=== PATIENT | female | born 1925 | race Caucasian/White ===

== ENCOUNTER 2016-09-25 19:51 | Inpatient (IN) | payer MEDICARE, BC ==
[~2016-09-25] VITALS: Ht 165.1 cm; Wt 50.3 kg
--- NOTE | ~2016-09-25 | CON ---
PATIENT'S NAME: ROCIO FORTUNE [facility] AGE: 89 Y [address] ROOM: [id number] [place] [address] LOCATION: [facility] ADMIT DATE: 09/25/2016 Consultation DISCHARGE DATE: FAMILY PHYSICIAN: PHYSICIAN, UNKNOWN ATTENDING PHYSICIAN: VANESSA VALENCIA REFERRING PHYSICIAN: Tien Brown MD Consult for Dr. Martinez. This 89-year-old lady is referred for evaluation. She was admitted on 09/25/2016 through ER with a reported syncopal episode. It is not clear how long she was unconscious and did not suffer any falls, did not hit her head. She asked for assistance soon after she was aware of her surroundings. She has no history that she can mention of TIA and/or stroke. She does have history of atrial fibrillation and hypertension and was not on long-term anticoagulant. No pain. No shortness of breath. No chest pain. No pains in any part of her body that she can report. She has not had neurological deficits. The only deficit she has is her hearing difficulty and memory a little bit. She has history of hypertension and atrial fibrillation. Left knee APA and history of right hip pinning surgery and arthritis. She had cataract surgery, neurologically intact, and degenerative arthritis. PHYSICAL EXAMINATION: GENERAL: At the present time alert, well oriented. VITAL SIGNS: Blood pressure 179/86, temperature 97.9, pulse 86 and regular, respirations 16. She is 5 feet 5 inches tall and weighs 40 kg. HEENT: Head normocephalic. Cranial nerves 2 through 12 are within normal limits. NECK: Supple. Trachea is central. CHEST: Moving equally and regular respiration. NEURO: She can comprehend, express without difficulty. Cranial nerves 2 through 12 are within normal limits. Speech is clear, not wet. Vocal cords and soft palate move symmetrical. She can move all four. Muscle strength is about 4-/5. She has marked kyphosis. Other than that, she is breathing well. She is saturating at room air. Can ambulate. Muscle strength about 4- as I said. Can ambulate up to 25 feet x1 with front-wheeled walker and cuing and minimum assistance. She is continent of her bowel and bladder, neurologically intact. PATIENT'S NAME: ROCIO FORTUNE [facility] AGE: 89 Y [address] ROOM: [id number] [place], [place] [address] LOCATION: [facility] ADMIT DATE: 09/25/2016 Consultation DISCHARGE DATE: FAMILY PHYSICIAN: PHYSICIAN, ZEV ATTENDING PHYSICIAN: VANESSA VALENCIA ASSESSMENT AND PLAN: We will continue her on PT/OT which has been already initiated and we will add speech therapy to her therapies at the present time. She is now doing well, and if she continues to do this well, I feel that she can go on outpatient basis and I can follow on her in 1 week after discharge. Please see the orders. Did discuss this with her son and herself, they verbalized understanding and agreement with plan of care. She is on the following medications: 1. Cozaar. 2. Nystatin. 3. Lipitor. 4. Toprol-XL. 5. Norvasc. 6. Tylenol. 7. Aspirin. 8. Protonix. At the present time, she is doing well, stable. I will follow on her while here and will like to follow on her on an outpatient basis in my office in about 1 week or so after discharge. Thank you for this referral. MD MARY YEE/henny /[id number] d: 09/26/16 1646 t: 09/27/16 0900, CONSULTATION REPORT
--- NOTE | ~2016-09-25 | CON ---
PATIENT'S NAME: ROCIO FORTUNE [facility] AGE: 89 Y [address] ROOM: [place] [address] LOCATION: [facility] ADMIT DATE: 09/25/2016 Consultation DISCHARGE DATE: FAMILY PHYSICIAN: PHYSICIAN, UNKNOWN ATTENDING PHYSICIAN: VANESSA VALENCIA DATE OF CONSULTATION: 09/26/2016 REFERRING PHYSICIAN: Tien Brown MD REASON FOR CARDIOLOGY CONSULT: Syncope and atrial fibrillation. HISTORY OF PRESENT ILLNESS: This is an 89-year-old female, admitted with a subacute stroke after a syncopal episode in her independent living facility. Consult is requested for atrial fibrillation and a rin-DJ-lfrqjfve myocardial infarction. The patient has no complaints of chest pain. She does have complaints of shortness of breath at times as well as some palpitations. When questioned of her events leading to admission, she has no recollection of her syncope or the events surrounding. She does remember eating lunch and then heading to her room, but then waking up in front of her sliding glass door on the floor. Her cardiac history includes hypertension as well as atrial fibrillation. No notation of her being seen by Cardiology, but she is followed by Dr. Buck. No notation of long-term anticoagulation with her AFib history. The patient does appear anxious and does tend to focus on telling me about her 's heart history even though he is . PAST MEDICAL HISTORY: 1. Hypertension. 2. Atrial fibrillation, not on long-term anticoagulation. 3. Impaired vision with cataracts and macular degeneration. 4. Arthritis. PAST SURGICAL HISTORY: 1. Past right hip surgery. 2. Cataract removal bilaterally. 3. Left knee surgery. FAMILY HISTORY: No noted family health history. SOCIAL HISTORY: The patient denies tobacco. She also denies alcohol or illicit drug use. CURRENT MEDICATIONS: 1. Aspirin 81 mg p.o. daily. 2. Lipitor 40 mg p.o. daily. PATIENT'S NAME: ROCIO FORTUNE [facility] AGE: 89 Y [address] ROOM: [place] [address] LOCATION: [facility] ADMIT DATE: 09/25/2016 Consultation DISCHARGE DATE: FAMILY PHYSICIAN: PHYSICIAN, UNKNOWN ATTENDING PHYSICIAN: VANESSA VALENCIA 3. Norvasc 5 mg p.o. daily. 4. Toprol-XL 200 mg p.o. daily. MEDICATION ALLERGIES: Penicillin causing confusion. REVIEW OF SYSTEMS: A 12-point review of systems evaluated and negative except for those listed in the HPI. Once again, she denies chest pain or shortness of breath. She also denies dizziness at rest or with activity. She also denies nausea, vomiting, diarrhea, or changes in stool color. DIAGNOSTICS: CMS evaluation shows a sodium of 144, potassium 3.6, BUN of 16, creatinine of 0.9, glucose of 101. Cardiac enzyme trend shows a CPK of 72 and then 95, a CK- MB of 2.4 and then 3.4, and a troponin I of 0.081 and then 0.078. Lipid evaluation shows a total cholesterol of 133, triglycerides 76, HDL of 63, and an LDL of 55. She has a free T4 of 1.3 and a TSH of 1.55. She currently has bilateral carotid Dopplers as well as echocardiogram currently pending. PHYSICAL EXAMINATION: VITAL SIGNS: Temperature 97.9, pulse 96, respirations 16, blood pressure 179/86, and O2 saturation 93% on room air. The patient weighs 40 kg. SKIN: [place], warm, and dry. EYES: Sclerae clear. No xanthelasmas. ENT: Oral mucosa is pink and moist. No jugular venous distention or carotid bruits. CHEST: Respirations are even and unlabored. Lungs are clear to auscultation. HEART: Irregular rate and rhythm. Normal S1 and S2. Continues in atrial fibrillation on her youth nutritional monitor. ABDOMEN: Soft and nontender. MUSCULOSKELETAL: Gait is normal. EXTREMITIES: Peripheral pulses palpable. No clubbing, cyanosis, or edema. PSYCH: Alert and oriented. Mood and affect are appropriate besides some mild anxiety and being disoriented to the overall healthcare admission situation. IMPRESSION AND PLAN: Per Dr. aMlik: 1. Syncope. 2. Accelerated hypertension. 3. Atrial fibrillation, unsure of chronicity. 4. Recent subacute cerebrovascular accident. 5. History of a right hip surgery. 6. Elevated cardiac enzymes and possible djd-GJ-wjmwdlnt myocardial infarction. PATIENT'S NAME: ROCIO FORTUNE [facility] AGE: 89 Y [address] ROOM: [place] [address] LOCATION: [facility] ADMIT DATE: 09/25/2016 Consultation DISCHARGE DATE: FAMILY PHYSICIAN: PHYSICIAN, UNKNOWN ATTENDING PHYSICIAN: VANESSA VALENCIA We will continue her cardiac medications including metoprolol and amlodipine and titrate as appropriate. We want to avoid hypotension in view of her recent CVA. We would also like to anticoagulate her as soon as possible if okay with Neurology. We will evaluate her echocardiogram to fully evaluate ejection fraction as well as look for wall motion and valvular abnormalities. Her elevated cardiac enzymes are possibly likely to a type 2 (demand-supply mismatch) event, but once again, we will evaluate her echocardiogram and continue monitoring her EKG and enzymes. We will continue to monitor, evaluate, and treat as appropriate. The patient will be started on losartan 25 mg p.o. daily. Thank you for this consult. Thank you for allowing [facility] to interact in the care of this patient. ANSHUL NELSON APRN FOR MD MARY MO/henny /[id number] d: 09/26/162033 t: 10/05/161918, CONSULTATION REPORT
--- NOTE | ~2016-09-25 | CON ---
PATIENT'S NAME: ROCIO FORTUNE [facility] AGE: 89 Y [address] ROOM: [id number] [place], [place] [address] LOCATION: [facility] ADMIT DATE: 09/25/2016 Consultation DISCHARGE DATE: 09/28/2016 FAMILY PHYSICIAN: Physician, Unknown ATTENDING PHYSICIAN: Jean Pierre Daniels DATE OF CONSULTATION: 09/26/2016 REFERRING PHYSICIAN: Tien Brown MD HISTORY OF PRESENT ILLNESS: The patient was seen in neurologic consultation on 09/26/2016 at 2:00 p.m. Ms. Fortune was admitted on the prior to my consultation, was living at an independent facility in [place] according to her son whom I discussed her history. She apparently was sitting up in a chair, leaning forward, and lost consciousness briefly. She had called for some assistance by the staff there, but it was thought that she had some alteration in her sensorium. She was taken to the emergency room where she was evaluated at [facility] An MRI was performed there and showed a small, very punctate area of perhaps an acute ischemic event in the right posterior parietal region. The area did not seem to correlate at all with the patient's symptoms and the patient alone was back to her baseline when I saw her on the floor after transfer to our hospital. Upon my examination, I learned a lot more about the patient in general. 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 She did have depressive features where she will be not speaking with the persons like she used to and he noted that from a standpoint of her memory, she certainly could not remember the television programs what she was watching nor can she remember anything that she reads, in fact some depressive features on top of some dementia was significantly ongoing for at least a year. The patient did have a history of atrial fibrillation that was considered to be stable due to the fact that she was potentially a fall risk and also the fact that she has dementia. There was a consideration that she should be placed on anticoagulation. Thus as far as my consultation goes, I was to consider the issue of whether the event of a, I believe, syncopal episode as well as her ongoing dementia deserves that the patient have anticoagulation. From the standpoint of my seeing the patient, she was simply confused as to day of the week, time, situation, again according to the son, this seems to be more or less her baseline for the past few months. There is no recent head trauma that would explain some confusion. A CAT scan of the brain done here did not reveal any evidence of an acute intracranial process such as a bleed and there certainly was no evidence of an evolving stroke. The patient was essentially fairly rambunctious and did not want to answer questions. She did not initiate any conversation with the staff, at times was simply very cantankerous. She did appear to have some mild delirium as to orientation and was a bit aggressive, thus some secondary mild delirium was considered on top of some dementia. PATIENT'S NAME: ROCIO FORTUNE [facility] AGE: 89 Y [address] ROOM: [place] [address] LOCATION: [facility] ADMIT DATE: 09/25/2016 Consultation DISCHARGE DATE: 09/28/2016 FAMILY PHYSICIAN: , Claudy ATTENDING PHYSICIAN: Jean Pierre Daniels SOCIAL HISTORY: The patient is for about a year. She denies any smoking. There is no smoking or alcohol history. She currently lives in an independent living facility. FAMILY HISTORY: Not consistent with coronary artery disease or stroke. PAST SURGICAL HISTORY: There is a prior surgical history of a right hip pinning and a left knee surgery. PRIOR MEDICAL HISTORY: Includes hypertension; bilateral osteoarthritis; she has decreased hearing; macular degeneration with decreased vision; and a history of atrial fibrillation, not on anticoagulation. REVIEW OF SYSTEMS: The patient clearly has progressive dementia over the course of the past year. At baseline, she has poor memory and essentially has poor ability for conversation. She has periods of unexplained delirium at times, especially with sundowning. There is no focal neurologic weakness or sensory loss on exam and her vision is intact. She responds to withdrawal to pain in all her limbs. PHYSICAL EXAMINATION: VITAL SIGNS: Revealed a pulse of 89, regular respiration rate 14, blood pressure 168/86, and temperature is 97. GENERAL: The patient is confused to time and date. She orients herself to persons in the room, but does not want to participate in conversation. She follows, however, all commands to test her limbs. NEUROLOGIC: I did not appreciate any pronator drift. She moves her limbs appropriately. There is normal bulk and tone of the muscles. There is decreased facial expression and some slowing of her general motor skills. Testing of guqfhc-gh-lnnc is intact without any evidence of dysmetria. Cranial nerves 2 through 12 were intact. As the patient did sit up upright at the bed and we walked her around the room briefly, she did not display any evidence for focal weakness of her limbs. DIAGNOSTICS: Again, review of her of the results of the MRI at [facility] which I reviewed on the PACS System revealed a very small punctate area suggestive of diffusion-weighted positive ischemic event; however, this is too small to suggest that it was related to a cardioembolic event and there did PATIENT'S NAME: ROCIO FORTUNE [facility] AGE: 89 Y [address] ROOM: [address] [address] LOCATION: T ADMIT DATE: 09/25/2016 Consultation DISCHARGE DATE: 09/28/2016 FAMILY PHYSICIAN: , Claudy ATTENDING PHYSICIAN: Jean Pierre Daniels not appear to be any other strokes within the region. A CT head done here does not reveal evidence of an evolving stroke. IMPRESSION: Based upon the patient's risk factors for stroke associated with atrial fibrillation, risk factors do include advanced age and female sex; however, based upon no significant coronary artery disease history, no history of diabetes, no history of stroke that can be determined to be associated with atrial fibrillation, I do believe that she has a very low likelihood of a stroke in the future, perhaps estimated to be 3% per year. Based upon her advanced age and clear dementia, which has been well documented by her family and in discussions with the family, the family would opt against anticoagulation. Certainly, this would be a risk factor for the patient who does have some unstable gait in general. I discussed that the risk for atrial fibrillation strokes is probably very low in this patient; and certainly knowing that she has advanced dementia and her advanced age, I would not recommend anticoagulation even though it was discussed with Cardiology and that seemed to be their recommendation. Family understands that there is probably an increased risk for atrial fibrillation-related strokes, but it does remain low. They understand that the dementia is likely moderate to severe at this point in time, they would rather the patient not be placed on anticoagulation as I described the risk for stroke being low based upon her concurrent medical history. From a standpoint of her neurologic status, I did not find any focal neurologic deficits on exam and I would have the patient return back to her assisted living facility. MD MART NGUYEN/henny /[id number] d: 09/29/162 t: 10/15/16 1030, CONSULTATION REPORT
--- NOTE | ~2016-09-25 | DS ---
PATIENT'S NAME: ROCIO FORTUNE [facility] AGE: 89 Y [address] ROOM: [place] [address] LOCATION: [facility] ADMIT DATE: 09/25/2016 Discharge Summary DISCHARGE DATE: 09/28/2016 FAMILY PHYSICIAN: Physician, Unknown ATTENDING PHYSICIAN: Jean Pierre Daniels DISCHARGE DIAGNOSES: 1. Syncope. 2. Dementia. PAST MEDICAL HISTORY: 1. Hypertension. 2. Chronic atrial fibrillation, not on long-term anticoagulation per the patient's choice. 3. Osteoarthritis. DISCHARGE MEDICATIONS: 1. Amlodipine 10 mg p.o. daily. 2. Toprol-XL 200 mg p.o. every evening. 3. Aspirin 81 mg p.o. daily. 4. Losartan 100 mg p.o. daily. 5. Pantoprazole 40 mg p.o. daily. 6. Tylenol 650 mg p.o. every 6 hours p.r.n. for pain or fever. FOLLOWUP PLAN: The patient is instructed to follow up with the primary care physician within 7 days. The patient is also instructed to follow up with rehab physician, Dr. Brown, in 1 week. INVESTIGATIONS DURING THE HOSPITALIZATION: 1. Chest x-ray on admission showed cardiac enlargement with vascular congestion. Diffuse reticular opacity, likely reflecting interstitial edema. Fibrotic changes and scarring also contribute to the interstitial prominence. 2. CT scan of the brain without contrast on September 25, 2016 performed at the [facility] showed extensive small vessel cerebrovascular disease. 3. MRI of the brain performed on September 25, 2016, at the [facility] showed extensive periventricular and subcortical white matter changes consistent with small vessel cerebrovascular disease, more prominent than normal for the patient's age. Tiny, 5 mm, subacute lacunar infarcts seen in the posterior medial aspect right parietal lobe on the diffusion-weighted sequence. 4. Transthoracic echo on September 26, 2016 showed normal left ventricular contractility. The estimated left ventricular ejection fraction is 60%. There is mild concentric left ventricular hypertrophy. Basal septal hypertrophy. Diastolic grade 3 diastolic dysfunction. There is no evidence for PFO or ASD. The right atrium is moderate to severely PATIENT'S NAME: ROCIO FORTUNE [facility] AGE: 89 Y [address] ROOM: [place] [address] LOCATION: [facility] ADMIT DATE: 09/25/2016 Discharge Summary DISCHARGE DATE: 09/28/2016 FAMILY PHYSICIAN: Physician, Unknown ATTENDING PHYSICIAN: Jean Pierre Daniels. Xbhbksws-[id number] mitral regurgitation. Moderate mitral annular calcification. The aortic valve is moderately sclerotic. Mild- to-moderate aortic regurgitation. Moderate tricuspid regurgitation. Ctbcgwxu-oa-qrnosu pulmonary hypertension. Pulmonary pressure is 56 mmHg. 5. EKG on admission show atrial fibrillation with heart rate 88 beats per minute with occasional PVC. No acute ischemic findings. 6. Troponin 0.081, followed by 0.078, followed by less than 0.04. Ammonia level 12. Fingerstick glucose ranged between 80 to 193. CPK 72, followed by 95, followed by 262. CK-MB 2.4, followed by 3.4, followed by 8.4. White blood cell on admission 7.3, hemoglobin 13.9, hematocrit 42.3, MCV 94.2, and platelet 126. Chemistry on admission glucose 101, BUN 16, creatinine 0.9, sodium 144, potassium 3.6, chloride 105, CO2 of 29, and calcium 8.4. On September 27, 2016 showed glucose 90, BUN 17, creatinine 0.9, sodium 143, potassium 3.8, chloride 108, CO2 of 24, and calcium 8.7. Albumin 2.9, phosphorus 2.8, GFR 59, anion gap 14.8 on September 27, 2016. Magnesium 1.9 on September 26, 2016. A1c 6.0. LDL 55, HDL 63, triglycerides 76, and total cholesterol 133. Urinalysis negative for UTI, leukocytes negative, nitrites negative, bacteria negative, white blood cells rare, red blood cells negative, and blood negative. TSH of 1.550 and free T4 of 1.3. CONSULTANTS INVOLVED IN CARE: 1. Neurologist, Dr. Arias. 2. Fundraiser, Dr. Malik. 3. Rehab physician, Dr. Brown. ADMISSION HISTORY AND HOSPITAL COURSE: For complete history and physical, refer to history and physical dictated on the day of admission. In summary, this is an 89-year-old female with past medical history as mentioned above, who was transferred from [facility] from the emergency room to here for higher level of care. The story was obtained from the patient and her family. The story is that the patient was sitting in a recliner, somehow she had a witnessed syncopal episode and was found leaning forward from the recliner. The patient had no recollection of how she suffered the syncope and could not really give much detail on the history. The patient got up from the chair and tried to reach the door and she called for assistance and was taken to the ER by her son for evaluation in the [facility] Emergency Room. CT scan of the brain and MRI were performed. MRI showed a subacute stroke, but it was subacute and not acute. The patient was transferred here for further evaluation in the hospital. Further workup and further evaluation by Neurology and Cardiology determined that the patient did not have any stroke given that the patient's MRI imaging was reviewed by the neurologist and based on the physical PATIENT'S NAME: ROCIO FORTUNE [facility] AGE: 89 Y [address] ROOM: [place] [address] LOCATION: [facility] ADMIT DATE: 09/25/2016 Discharge Summary DISCHARGE DATE: 09/28/2016 FAMILY PHYSICIAN: Physician, Claudy ATTENDING PHYSICIAN: Jean Pierre Daniels examination, the patient has absolutely no neurological deficit at all. It was believed that the patient did not have any acute stroke and stroke was not the main reason for this admission. The patient was admitted for the evaluation of the syncope and also questionable stroke. 1) Regarding her syncope: The patient was seen by linux consultant Dr. Malik. The patient had orthostatic vital signs checked, which were negative. Therefore, dehydration ruled out. The patient has a history of chronic atrial fibrillation. An echo was performed, which did not show any abnormality in the contractility. EF was normal at 60%; however, showed grade 3 diastolic dysfunction. The patient's troponin was also slightly elevated; however, it was not ACS given that the patient did not have any chest pain and the troponin already peaked. It is believed this is most likely from demand ischemia. Cardiology deferred care of anticoagulation for Neurology. The patient did not have any chest pain. Troponin already normalized and echo did not show any abnormal contractility, therefore, cardiac catheterization was not performed since the echo did not show any motion abnormality. Her syncope was not clear what was the cause, perhaps it is vasovagal. The patient has been stable throughout the hospitalization and did not have any more episodes of syncope. Neurology saw the patient, and given that the patient did not have any neurological deficit, anticoagulation for her chronic atrial fibrillation was discussed among the Neurologist Dr. Arias, patient, and her family members. The decision was not to proceed with anticoagulation due to high fall risks and given the patient does not have any history of heart failure or coronary artery disease, echo also showed normal contractility, therefore, the patient and the patient's family and neurologist all agreed not to proceed with the use of long- term anticoagulation. 2) Regarding her questionable stroke: The patient does not have any acute stroke. The patient has no neurological deficit at all on physical examination. The patient was seen by rehab physician, who also agreed that there is absolutely no neurological deficit. Therefore, the patient will have outpatient followup with Dr. Brown for rehab. The patient does not require inpatient rehab. MRI was reviewed by the neurologist and could not find any evidence of acute stroke or subacute stroke. The patient has no symptoms whatsoever of stroke. The patient will be discharged home with medications mentioned in the discharge medication section. 3) Regarding her dementia: The patient was evaluated by Neurology and she does have symptoms consistent with dementia. Family members also agreed that she is forgetful and has been experiencing short-term memory problem consistent with dementia. During this hospitalization, the patient had brief episodes of delirium that was controlled with a few doses of Seroquel as part of the PATIENT'S NAME: ROCIO FORTUNE [facility] AGE: 89 Y [address] ROOM: [place] [address] LOCATION: [facility] ADMIT DATE: 09/25/2016 Discharge Summary DISCHARGE DATE: 09/28/2016 FAMILY PHYSICIAN: Physician, Unknown ATTENDING PHYSICIAN: Jean Pierre Daniels delirium order set. Delirium workup was performed and could not find any reversible causes or possible explanation of the delirium. Her urine culture was negative. Her electrolytes were unremarkable. Chest x-ray did not show any pneumonia. There is no UTI. There is no stroke on MRI. CT scan did not show any stroke either. There is no bleeding in the brain. Simply the patient kept saying that the only thing she wanted was to go home. On the day of discharge, the patient's family members were at the bedside and the patient was back to her normal baseline. Delirium had resolved. I had a lengthy family meeting with patient's family members and also her other son (by phone), who lives in [place]. I spent a lengthy amount of time on the phone with the son in [place], who is the healthcare proxy to update him on the entire hospitalization course and the discharge planning. I answered all of the questions that the patient's son had in [place] and I also asked if the son agreed to let the patient go home with her other son, who will be taking care of the patient at home. The son in [place] agreed and gave me the permission to have her other son take her back home to take care of the patient. On the day of discharge, I answered all the questions that the family members had at the bedside and also from the son, who lives in [place], who is the healthcare proxy. On the day of discharge, the patient is in good spirits, vital signs within normal limits. Delirium already resolved. She is alert and oriented x3. The only thing she wants to do is to go home. On the day of discharge, 35 minutes was spent on counseling, going over the entire hospitalization course with the patient and her family members at the bedside. I also spoke over the phone with her son in [place]. I addressed all the questions and concerns that the patient and her family members had and also went over follow up plans with all of them. MD CARLOS DUNN/henny /[id number] d: 10/01/16 0309 t: 10/16/16 1021, DISCHARGE SUMMARY
--- NOTE | ~2016-09-25 | ECHO ---
Transthoracic Echocardiography Report (TTE) Demographics Patient Name ROCIO FORTUNE Date of Study 09/26/2016 Patient Number [id number] Visit Number [id number] Date of 1925 Room Number G6225 Accession Number [id number] Gender Female Age 89 year(s) Referring Frances Ulrich MD Secretary Specialist Jevon Schulte RVT Physician Balwinder Barragan Physician Interpreting Helena Hollis Piano Teacher Physician Supervising Ordering Physician Juan Mann MD, MD/MLP Nurse Stress Dock Coordinator Conclusions Contractility Score Summary Normal Left Ventricular contractility was noted. Summary The estimated left ventricular ejection fraction is 60%. The left ventricle is normal in size . Mild concentric left ventricular hypertrophy. Basal septal hypertrophy Diastolic assessment reveals Grade III restrictive diastolic dysfunction. Mildly dilated right ventricle. The left atrium is severely dilated by LA volume index measurement. Bubble study was done, there is no evidence for a PFO or ASD. The right atrium is moderate to severely dilated. Hepatic vein flow reversal noted. Moderate mitral annular calcification. Moderate-severe mitral regurgitation by color Doppler. The aortic valve is moderately sclerotic. There is mild to moderate aortic regurgitation by color Doppler. Moderate tricuspid regurgitation by color Doppler. There is moderate to severe pulmonary hypertension. The pulmonary pressure (RVSP) is 56 mmHg. Mild pulmonic valve regurgitation by color Doppler. Procedure Type of Study TTE procedure:2D Echocardiogram, M-Mode, Doppler , Color Doppler, Echo with Contrast. Procedure Date Date: 09/26/2016 Start: 08:09 AM Study Location: Inpatient Portable Technical Quality: Adequate visualization Indications:CVA and Syncope. Appropriate Use Criteria: 9 Patient Status: Routine HR: 89 bpm BP: 179/86 mmHg M-Mode/2D Measurements LV Diastolic Dimension: 3.71 cm LV Systolic Dimension: 2.54 cm LV Septum Diastolic: 1.29 cm LV PW Diastolic: 1.18 cm AO Root Dimension: 2.7 cm Cardiac Output: 5.21 l/min AV Cusp Separation: 0.9 cm RV Diastolic Dimension: 3.49 cm LA volume: 90 ml LVOT: 2.1 cm RV Base: 4.16 cm LVOT VTI: 16.9 cm RV Mid: 3.03 cm LV Stroke volume: 58.51 ml TAPSE: 1.86 cm TDI-S': 16.5 cm/s Doppler Measurements AV Peak Velocity: 1.9 m/s MV Peak E-Wave: 1.64 m/s AV Peak Gradient: 14.44 mmHg MV Peak A-Wave: 0.99 m/s AV Mean Gradient: 8 mmHg MV E/A Ratio: 1.66 LVOT Peak Velocity: 0.7 m/s AV P1/2t: 424 msec MV Deceleration Time: 141 msec TR Velocity:3.46 m/s PV Peak Velocity: 0.53 m/s TR Gradient:47.89 mmHg PV Peak Gradient: 1.14 mmHg Estimated RAP:8 mmHg Estimated PASP: 55.89 mmHg Estimated RVSP: 56 mmHg A' Septal Velocity: 0.05 m/s E' Septal Velocity: 0.06 m/s A' Lateral Velocity: 0.04 m/s E' Lateral Velocity: 0.08 m/s Findings Left Ventricle The left ventricle is normal in size . Basal septal hypertrophy Mild concentric left ventricular hypertrophy. Sigmoid septum measures 1.92 cm. No evidence of LVOT obstruction. Diastolic assessment reveals Grade III restrictive diastolic dysfunction. Right Ventricle Mildly dilated right ventricle. Normal right ventricular function. Left Atrium The left atrium is severely dilated by LA volume index measurement. Bubble study was done, there is no evidence for a PFO or ASD. Right Atrium The right atrium is moderate to severely dilated. IVC measures 1.74 cm without inspiratory collapse. Hepatic vein flow reversal noted. Mitral Valve Moderate mitral annular calcification. Moderately calcified posterior leaflet of the mitral valve. Moderate-severe mitral regurgitation by color Doppler. Aortic Valve The aortic valve is moderately sclerotic. There is mild to moderate aortic regurgitation by color Doppler. Tricuspid Valve Normal tricuspid valve structure and function. Moderate tricuspid regurgitation by color Doppler. There is moderate to severe pulmonary hypertension. The pulmonary pressure (RVSP) is 56 mmHg. Pulmonic Valve Mild pulmonic valve regurgitation by color Doppler. Pericardial Effusion No evidence of pericardial effusion. Miscellaneous Visualized portions of the aortic root appear normal in size. The ascending aorta appears mildly dilated. The maximum diameter measures 3.5 cm. Pleural Effusion No evidence of pleural effusion. Contractility Score LV regional wall motion:(0-Non visualized 1-Normal 2-Hypokinesis 3-Akinesis 4-Dyskinesis 5-Aneurysm) Signature dtt: HANS POWERS dtd: 09/26/16 0809 Physician Self Edit
--- NOTE | ~2016-09-25 | HP ---
PATIENT'S NAME: ROCIO FORTUNE [facility] AGE: 89 Y [address] ROOM: [place] [address] LOCATION: [facility] ADMIT DATE: 09/25/2016 History & Physical DISCHARGE DATE: FAMILY PHYSICIAN: PHYSICIAN, UNKNOWN ATTENDING PHYSICIAN: VANESSA VALENCIA DATE OF SERVICE: ATTENDING PHYSICIAN: Patel Martinez MD PRIMARY CARE PHYSICIAN: None. CHIEF COMPLAINT: Syncopal episode. HISTORY OF PRESENT ILLNESS: This is an 89-year-old female, who was transferred from [facility] ER for higher level of care. As per history obtained from the patient and her family, the patient currently lives in an independent living facility in [place], [place]. She states that she was sitting in a recliner somewhere around this afternoon at about 1 o'clock. She then had a syncopal episode and was found leaning forward from the recliner. This happened around 2:30 p.m. The patient is unsure how long she was unconscious. She then got up and tried to reach the door. She called for assistance and was taken to the ER by her son at approximately 4:00 p.m. She was evaluated in the ER and was found to have subacute stroke. She was then transferred to the [facility]. At the time of my examination, the patient denies any history of stroke or TIA in the past. She does have a history of hypertension and atrial fibrillation. She is not on any long-term anticoagulation. She denies any chest pain or shortness of breath. Denies any head trauma. Denies any headache. Denies any neck pain or back pain issues. Denies abdominal pain. Denies diarrhea or constipation issues. No other complaints at this point of time. She does not have any neurologic deficits. Gait was not assessed. REVIEW OF SYSTEMS: A 10-point review of systems was done and was otherwise negative except as mentioned above. HOME MEDICATIONS: Per NOV. SOCIAL HISTORY: The patient denies smoking or alcohol history. She currently lives in an PATIENT'S NAME: ROCIO FORTUNE [facility] AGE: 89 Y [address] ROOM: [place] [address] LOCATION: [facility] ADMIT DATE: 09/25/2016 History & Physical DISCHARGE DATE: FAMILY PHYSICIAN: PHYSICIAN, UNKNOWN ATTENDING PHYSICIAN: VANESSA VALENCIA independent living setting. FAMILY HISTORY: No family history of heart disease or cancer reported. PAST SURGICAL HISTORY: 1. Left knee APA. 2. Cataract surgery bilaterally. 3. Right hip pinning surgery. PAST MEDICAL HISTORY: 1. Hypertension. 2. History of atrial fibrillation, not on long-term anticoagulation. 3. Arthritis. 4. Hard of hearing. 5. Impaired vision. 6. Macular degeneration. 7. Cataract. PHYSICAL EXAMINATION: VITAL SIGNS: Temperature 97.4, pulse 93 and irregular, respirations 16, blood pressure 174/86, saturation 92% on room air. GENERAL: The patient is alert and oriented x3. Answers all questions appropriately. No acute distress. HEENT: Head: Normocephalic, atraumatic. Pupils are equal, round, reactive to light. Extraocular muscles are intact. No scleral icterus noted. No conjunctival injection noted. Nares clear. Throat clear. Mucous membranes moist. NECK: Supple. No nuchal rigidity. SPINE: No tenderness to palpation of cervical, thoracic, or lumbosacral spine. HEART: Regular rate and rhythm. LUNGS: Clear to auscultation bilaterally. ABDOMEN: Soft, nontender, nondistended. Bowel sounds are present. EXTREMITIES: No clubbing, cyanosis, or edema. VASCULAR: Pulses 2+ distally bilaterally. SKIN: The patient has some bruising noted on her right knee. No other rashes or bruises noted. NEUROLOGIC: The patient is alert and oriented x3. Follows all commands. Moves all extremities. Cranial nerves II through XII grossly intact. Deep tendon reflexes 2+/4. Sensation intact bilateral upper and lower extremities. Sensation intact on the face. Gait not assessed. She currently uses a cane for ambulation per the patient. LABORATORY DATA AND DIAGNOSTIC STUDIES: PATIENT'S NAME: ROCIO FORTUNE [facility] AGE: 89 Y [address] ROOM: [address] [place] [id number] LOCATION: [facility] ADMIT DATE: 09/25/2016 History & Physical DISCHARGE DATE: FAMILY PHYSICIAN: PHYSICIAN, UNKNOWN ATTENDING PHYSICIAN: VANESSA VALENCIA Studies were reviewed from the referral ER. The patient had an EKG that showed nonspecific ST abnormality and a rate of 99 beats per minute. No acute ST changes were noted. Per reviewed records, the patient also had a CBC done, that showed a white count of 8.1, hemoglobin 13.7, hematocrit 43, platelet count 141. CPK 61, CK-MB 3.1, troponin I 0.05. CMP showed a glucose 105, BUN 25, creatinine 1.15. Calcium 8.9, alkaline phosphatase 99, ALT 13, AST 22, albumin 3.3, total protein 6.8, total bilirubin 1.2. Sodium 143, potassium 3.9, chloride 107, bicarb 26. Anion gap 10.0. GFR 44. PTT 26.3. The patient apparently had a CT of head initially. Per reviewed records, that was unremarkable and showed no bleed per the ER note. MRI of head was also done and showed subacute lacunar infarct at the right parietal area, minimal in size, and appeared to be 2-3 weeks old per ER note. I do not have the official ER report at this point of time. Studies were done at [facility]. EKG showed atrial fibrillation with a rate of 88 beats per minute with PVCs. Accu-Chek 129. CPK 72, troponin I 0.081. CBC and BMP are pending. Lipid panel is pending. CK-MB 2.4. Chest x-ray is pending at this point of time. ASSESSMENT AND PLAN: An 89-year-old female presenting with a syncopal episode. 1. Syncopal episode. Unclear about the etiology of the syncope. We will do a syncopal workup on the patient including 2D echo and carotid Dopplers. This will be part of the stroke workup as well. 2. History of fall. This was likely secondary to the syncopal episode. 3. Subacute infarct. The patient has a right parietal subacute infarct. This happened probably about 2 to 3-weeks' old per the MRI. We will obtain official MRI and CT scan report from the referral ER. We will place the patient on the stroke protocol. We will get a carotid Doppler and TTE in a.m. I will hydrate her with normal saline for now. We will place her on statin and aspirin. Neurology consult will be obtained for the patient. 4. Elevated cardiac enzymes. The patient has Non-ST elevation myocardial infarction and no EKG changes are noted. She does not complain of any chest pain. We will monitor her very closely. Consider a cardiology consult. She will receive an echo in the a.m. 5. Hypertension. Continue home medication. 6. History of atrial fibrillation. The patient has atrial fibrillation. Currently, she is rate controlled. Monitor for now. 7. Code status. Full code, discussed with the patient and family at the time of admission. PATIENT'S NAME: ROCIO FORTUNE [facility] AGE: 89 Y [address] ROOM: [place] [address] LOCATION: [facility] ADMIT DATE: 09/25/2016 History & Physical DISCHARGE DATE: FAMILY PHYSICIAN: PHYSICIAN, UNKNOWN ATTENDING PHYSICIAN: VANESSA VALENCIA MD MT/henny /[id number] D: [id number] T: [id number] HISTORY & PHYSICAL
[~2016-09-25 19:51] MED LIST: CALCIUM 600 +1 EA14 PO; CENTRUM SILVER1 TAB PO; DULCOLAX10 MG R; FLONASE 50 MCG/16 GM NOSE; MAGOX 400400 MG PO; MILK OF MA400 MG/5 M PO; MIRALAX17 GM PO; NORCO 5-325 MG1 TAB PO; NORVASC10 MG PO; PEPCID20 MG PO; SENOKOT8.6 MG PO; TOPROL XL200 MG PO; TYLENOL EXTRA500 MG PO; XARELTO15 MG PO
--- NOTE | 2016-09-26 01:10 | NUR ---
Patient lives at [facility] by herself. She was sitting in her recliner this afteroon and woke up on the floor. Does not remember falling. Was able to get up and walk to door and yell for neighbor. EMS called and was transported to [facility]. MRI done found a subacute stroke that was 3-4 weeks old. Also found new onset of Afib. Was transferred to [facility]. Stroke order set. TTE in morning. Cardiac enzymes. Allergic to penicillin.
[2016-09-26 04:56] LABS: BASOPHIL % 0.4 %; EOSINOPHIL # 0.2 K/uL (0.0-0.5); HEMATOCRIT 42.3 % (30.0-46.0); HEMOGLOBIN 13.9 g/dL (10.0-15.0); IMMATURE GRANULOCYTE % 0.4 %; LYMPHOCYTE # 1.3 K/uL (0.8-4.0); LYMPHOCYTE % 17.1 %; MCHC 32.9 gm/dL (32.0-36.5); MCV 94.2 fl (83.0-98.0); MONOCYTE # 0.7 K/uL (0.0-1.0); MONOCYTE % 9.3 %; MPV 10.1 fl (9.4-12.4); NEUTROPHIL # (ANC) 5.2 K/uL (1.8-7.8); NEUTROPHIL % 70.8 %; NRBC % 0 /100WBC (0-0.00); PLATELET COUNT 126 K/uL (150-450); RBC 4.49 M/uL (3.00-5.00); RDW-CV 14.3 % (11.9-14.6); WBC 7.3 K/uL (4.0-11.0)
--- NOTE | 2016-09-26 05:17 | NUR ---
Significant Event: Patient alert and oriented x3. Denies numbness and tingling. PERRLA. Moderate equal strength throughout. NIH stroke scale 0. Lungs clear and diminished on room air. IV to left wrist saline locked. Pulses in left lower extremity 1+. Pulses in right lower extremity 2+. Trace edema to lower extremities. IV to left wrist running NS at 70/hr. Last BM 09/24. Bedrest. Cardiac diet. Call Dr if SBP <90 or >180; HR <50 or >130. Blood pressure 186/111 on last assessment, home meds of amlodipine and toprol restarted. Consulted Dr. Sanchez. Cardiac enzymes elevated. EKG done. Patient in afib - new onset. Follow up: Consult Dr. JEANCARLOS Littlejohn and Dr. Arias in AM. TTE today.
[2016-09-26 05:21] LABS: ANION GAP 13.6 (10.0-19.0); CALCIUM 8.4 mg/dL (8.5-10.5); CREATININE 0.9 mg/dL (0.5-1.1); POTASSIUM 3.6 mMol/L (3.7-5.1)
--- NOTE | 2016-09-26 18:40 | NUR ---
Significant Event:VSS, DENIES PAIN, A/O X 3, NIHSS 0, AT 1600 PT WAS MUCH RESTLESS AND SLIGHTLY CONFUSED. PT STATES SHE WAS RESTLESS/TIRED. REFUSED TO RETURN TO BED. AMBULATED IN HALLWAY GB/WALKER/STAFF ASSIST X 3. SEROQUEL 12.5MG AT 1700, TYLENOL 650MG PO AT 1640, TUMS FOR INDIGESTION. TTE, CARTOID DOPPLERS, CARDIOLOGY CONSULTS DONE TODAY. PT ID ON COZAAR 25MG AND POTASSIUM 20MG, A1-C 6. IV SL. PT MOVED TO A ROOM CLOSER TO [facility], BED ALARMS ON. Follow up:MONITOR NEURO STATUS, PROVIDE REST PERIOD
--- NOTE | 2016-09-27 04:38 | NUR ---
Significant Event: Patient alert to self. NIH stroke scale 1. Moderate equal strength. Moves all extremities spontaneously and to command. IV to left wrist saline locked. Pulses in left lower extremity 1+ and right lower extremity 2+. Trace edema to lower extremity. Patient up 1 assist with gait belt and walker. Cardiac diet. Q6 accuchecks. Patient in afib. Patient became more and more agitated as night went on. Patient would get out of bed often and was physically combative and restless. Multiple nurses needed to help settle her down. 0.25mg of ativan given 2344. Patient rested on and off until 0300. Then patient began increasing in agitaiton again, occasionally attempting to get out of bed. She continues to sleep on and off approximately every 15-20minutes. Follow up:
[2016-09-27 07:12] LABS: CALCIUM 8.7 mg/dL (8.5-10.5)
[2016-09-27 07:14] LABS: ANION GAP 14.8 (10.0-19.0); CREATININE 0.9 mg/dL (0.5-1.1); POTASSIUM 3.8 mMol/L (3.7-5.1)
[2016-09-27 07:15] LABS: ALBUMIN 2.9 gm/dL (3.5-5.0); PHOSPHORUS 2.8 mg/dL (2.5-4.9)
[2016-09-27 13:08] LABS: CPK 262 IU/L (21-215)
--- NOTE | 2016-09-27 13:39 | NUR ---
Introduced self and role of care management to patients son Yefri and daughter in law. He states that patient lives here in [place] at [facility]. She is normally able to do all her own ADL's. She does use a cane to assist with ambulation. I explained that I had spoken to the physical therapist and she does not feel that Jeanna is safe to go home alone at this time. He states that he would be able to stay with her thru the weekend starting tomorrow but would like someone to come in an see that she is taking her medication correctly. I explained that we could have home health follow to assist with setting up a pill box. He did express that he felt Jeanna was not ready to go home yet. He stated that someone need to monitor her B/P and medications. I explained that those were not reasons alone to keep her in the hospital. I offered to make referrals for a Medicare Skilled stay if they would be intrested in that option. He stated he felt that would be a good option but I would need to call and speak with his brother Kurt who is POA. I called and spoke with Kurt and explained everything I had laurie told his brother Yefri. He did request that I check with [facility] to see if they had any openings. I called and [facility] currently is not accepting new residents d/t influenza. I have calls out to [facility] and [facility]. [facility] does have female beds available. Will update Kurt when I hear back [facility]. Will continue to follow.
--- NOTE | 2016-09-27 14:38 | NUR ---
Called and updated patients son Kurt that [facility] is not accepting new residents at this time. He states that after talking with his brother his mothers discharge plans will be to go back to [facility]. Between his brother and his there will be someone with Jeanna at all time. Then Kurt and his will be here Oct 02- and plan on moving Jeanna to [place]. He states that they will tell Jeanna the plan when he gets here. I called and updated Jody WADE.
--- NOTE | 2016-09-27 18:53 | NUR ---
Significant Event:VSS, afib. Remains restless/agitated at times. Alert to self, family, place. Able to asked for personal needs at times. Delirium protocal initiated, Seroquel 12.5mg po at 1434, Ativan 0.25mg po at 1720. Tylenol 650mg po x 2, last dose at 1720. Pt slept at 2 hour intervals this am and afternoon, then up in chair, SR x 4 up, bed/chair alarms at all times. Family here, Son in [place] updated. Ambulates with 2 SBA/GB/Walker. Follow up:DC with supportive care, [facility] is following.
--- NOTE | 2016-09-28 04:57 | NUR ---
Significant Event: A/O to person. Slept most of night w/mild fidgeting of gown and cords. Up Ax1/gb/walker to bathroom. Left FA IVSL w/coban. Tele Afib. HiLo bed w/all 4 rails up. Follow up: D/C to increased level of care facility
--- NOTE | 2016-09-28 12:55 | NUR ---
Introduced self and role of care management to patient. He lives in [place] by himself. He states that he is able to do some of his own ADL's. He does use an electric W/C as his "knees just give out." He has 2 caregivers that come in everyday to assist as needed. He states that his caregivers are the ones that take him to his Dr appointments and errands. He has friends that help out if his caregivers are not there. He plans on returning home on discharge at this time. He denies any needs at this time. Will continue to follow.
[2016-09-28 13:25] LABS: BILIRUBIN URINE NEGATIVE (NEGATIVE); BLOOD URINE NEGATIVE /UL (NEGATIVE); COLOR URINE YELLOW (YELLOW); GLUCOSE URINE NEGATIVE (NEGATIVE); KETONE URINE NEGATIVE (NEGATIVE); LEUKOCYTES URINE NEGATIVE /UL (NEGATIVE); NITRITE URINE NEGATIVE (NEGATIVE); PROTEIN URINE 15 mg/dL (NEGATIVE); TURBIDITY URINE CLEAR (CLEAR); UROBILINOGEN URINE NORMAL (NORMAL)
[2016-09-28 13:58] LABS: BACTERIA URINE NEGATIVE (NEGATIVE); EPITHELIAL URINE RARE #/HPF (NEGATIVE); RBC URINE NEGATIVE #/HPF (NEGATIVE); WBC URINE RARE #/HPF (NEGATIVE)
[2016-09-28 13:59] LABS: MUCUS URINE NEGATIVE (NEGATIVE)
--- NOTE | 2016-09-28 14:47 | NUR ---
Received a call from navin daughter in law Karla who is a nurse. We discussed discharge plans. She agrees that patient will go home and son Yefri with stay with her til her son Kurt gets here from [place]. She did request that no one mention the possible move to [place] as it will upset patient. Questions asked and answered. Will continue to follow.
[2016-09-28] MEDS ORDERED: ASPIRIN (CHILDR81 MG PO (16:46)
[2016-09-28] MEDS ORDERED: COZAAR100 MG PO (16:47)
[2016-09-28] MEDS ORDERED: PROTONIX40 MG PO (16:49)
[2016-09-28] MEDS ORDERED: TYLENOL325 MG PO (16:50)
--- NOTE | 2016-09-28 16:57 | NUR ---
Patient is oriented to self and place. Denies MORALES, Denies altered sensation. Restless at times. PERRLA. Scab to left arm- open to air. Scratch to right knee- open to air. Bilateral legs- bruised and red. Lungs are clear and slightly diminished in the bases- RA. Confused at times- repeats self. Legs and arms- Pale, cool and good cap refill. 1+ edema to bilateral legs. No Edema to arms. Equal strength. Follows command. Patient is to go home with son and his . POA aware. Pleasant and cooperative with cares
== END 2016-09-28 17:45 | disposition home health service (06) | DRG 64 ==
LOC: GNTU 19:51
PROVIDERS: Family Medicine; Nurse Practitioner; Physician Assistant; ADMIT Internal Medicine
DX: I63.9 Cerebral infarction, unspecified (principal); I21.4 Non-ST elevation (NSTEMI) myocardial infarction; I48.2 Chronic atrial fibrillation; E46 Unspecified protein-calorie malnutrition; I10 Essential (primary) hypertension; H35.30 Unspecified macular degeneration; H54.7 Unspecified visual loss; Z68.1 Body mass index [BMI] 19.9 or less, adult; Z91.81 History of falling; Z79.01 Long term (current) use of anticoagulants; H91.90 Unspecified hearing loss, unspecified ear; M19.90 Unspecified osteoarthritis, unspecified site
CPT/HCPCS: C8929; C9113; J2060; J7030